=== PATIENT | male | born 1955 | race Two or more races ===

== ENCOUNTER → 2021-05-26 | Outpatient (CLI) | payer OTHER ==
[~2021-05-26] MED LIST: REGADENOSON 0.4 MG/5 ML DISP.SYRIN. IV ONE
--- NOTE | 2021-05-26 14:55 | RAD ---
MR#: [id number] Date of Study: 05/26/2021 Ordering Physician: NIKOLAY JONES, Referring Physician: VIVI STORY Tech: BRISA العراقي, ARRT (R) (N) APPROVED REPORT Test Type: Pharmacological Stress Nurse/Tech: Aleta Gonzáles RN Test Indications: Dyspnea on exertion Cardiac History: HTN, See EMR. Medications: See EMR. Medical History: DM, See EMR. Resting ECG: SR Resting Heart Rate: 63 bpm Resting Blood Pressure: 130/77mmHg Pretest Chest Pain: No chest pain Nurse/Tech Notes Lungs CTA, Heart tones regular. Consent: The procedure was explained to the patient in lay terms. Informed consent was witnessed. [employer] eout was entered into [employer]. History and Stress Test performed by RT Stanislav (R) (N) Pharm. Details Pharmacologic stress testing was performed using 0.4mg per 5ml of regadenoson given intravenously ove r 7-10 seconds. Stress Symptoms No chest pain or symptoms. POST EXERCISE Reason for Termination: Infusion complete Max HR: 108 bpm Max Blood Pressure: 112/62mmHg Blood Pressure response to exercise: Normal blood pressure response during stress. Heart Rate response to exercise: WNL Chest Pain: No. Arrhythmia: No. ST Change: No. INTERPRETATION Stress EKG Conclusion: The resting EKG shows a sinus rhythm with mild nonspecific ST segment changes. The stress EKG shows no significant changes from baseline. No EKG evidence of stress-induced ischemia. Imaging Protocol IMAGE PROTOCOL: Rest Tc-99m/stress Tc-99m 1 day Rest: Stress: Viability: Radiopharm.Tc99m AkomljpkcTi18s Sestamibi Dose10.5mCi 33mCi Img Date 05/26/2021 05/26/2021 Inj-Img Rrro50lje. 60min. Rest Admin Site:IV - Right AntecubitalAdministrator:KESHA José Stress Admin Site: IV - Right AntecubitalAdministrator: RT Stanislav (R)(N) STRESS DATA End Diast. Vol.66.0mlLVEDV index BSA38.0ml End Syst. Vol.22.0mlLVESV index BSA13.0ml Myocardial Frvl871.0gEject. Mdhgqaen00.0% Stress Scores Regional WT2.00Summed WT22.00 Regional WM0.00Summed WM4.00 LV Perfusion The stress scans showed no significant defects. The rest scans showed no significant defects. Nuclear imaging shows no reversible ischemia or infarct. Wall Motion Left ventricular systolic function is intact with an ejection fraction of 54%. LV Perf. Quant 17 Seg. SSS0.00 17 Seg. SRS2.00 17 Seg. SDS0.00 Stress Defect Extent (% LAD)0.00Rest Defect Extent (% LAD)0.00Rev. Defect Extent (% LAD)0.00 Stress Defect Extent (% LCX) 0.00Rest Defect Extent (% LCX)6.30Rev. Defect Extent (% LCX)0.00 Stress Defect Extent (% RCA)0.00Rest Defect Extent (% RCA)7.80Rev. Defect Extent (% RCA)0.00 Stress Defect Extent (% RAMÓN)0.00Rest Defect Extent (% RAMÓN)5.00Rev. Defect Extent (% RAMÓN)0.00 IMPRESSION Comparison of Rest to Stress Regional Wall Thickening: No Change, Normal, Mildly Decreased Wall Thic kening Conclusion 1. No EKG evidence of stress-induced ischemia. 2. Nuclear imaging shows no reversible ischemia or infarct. 3. Intact LV systolic function with an ejection fraction of 54%. 4. Moderately low to low risk Lexiscan nuclear stress test. Signed by : Nikolay Jones MD Electronically Approved : 05/26/2021 14:54:58
== END ==
LOC: NM 09:00
PROVIDERS: ATTEND Internal Medicine Cardiovascular Disease
DX: R06.09 Other forms of dyspnea (principal)
CPT/HCPCS: 78452; 93017; A9500; J2785